=== PATIENT | female | born 1965 | race Caucasian/White ===

== ENCOUNTER → 2024-02-18 13:57 | Outpatient (REF) | payer MEDICARE, OTHER, SELFPAY | LOC: WDC 13:57 | PROVIDERS: ATTENDING PHYSICIAN Obstetrics & Gynecology Gynecology; FAMILY PHYSICIAN Family Medicine | DX: Z12.31 Encounter for screening mammogram for malignant neoplasm of breast (principal) | CPT/HCPCS: 77063; 77067 ==

== ENCOUNTER 2024-09-16 13:41 | Emergency (ER) | payer MEDICARE, OTHER, SELFPAY ==
[2024-09-16 13:43] VITALS: BP 146/73
[2024-09-16 14:17] LABS: % Basophils 0.3 % (0-2); % Eosinophils 1.7 % (0-6); % Immature Granulocytes 0.3 % (0-0.5); % Lymphocytes 39.7 % (20.5-51.1); % Monocytes 8.1 % (1.7-9.3); % Neutrophils 49.9 % (42.2-75.2); Absolute Eosinophils 0.1 10^3/uL (0-0.7); Absolute Lymphocytes 1.2 10^3/uL (1.2-3.4); Absolute Monocytes 0.2 10^3/uL (0.1-0.6); Absolute Neutrophils 1.5 10^3/uL (1.4-6.5); Hematocrit 33.2 % (37.0-47.0); Hemoglobin 11.7 g/dL (12.0-16.0); Mean Corp Hgb Conc. 35.2 g/dL (33.0-37.0); Mean Corpuscular Hgb 33.5 pg (27.0-31.0); Mean Corpuscular Volume 95.1 fL (81.0-99.0); Mean Platelet Volume 9.6 fL (7.4-10.4); Nucleated Red Blood Cells % 0 %; Platelet Count 261 10^3/uL (130-400); Red Blood Cell Count 3.49 10^6/uL (4.20-5.40); Red Cell Dist. Width 13.2 % (11.5-14.5)
[2024-09-16 14:49] LABS: ALT (SGPT) 18 U/L (0-35); AST (SGOT) 31 U/L (14-36); Albumin 4.4 g/dl (3.5-5.0); Alkaline Phosphatase 85 U/L (38-126); Blood Urea Nitrogen 15 mg/dl (7-17); Calcium 9.6 mg/dl (8.4-10.2); Carbon Dioxide 27 mmol/L (22-30); Chloride 101 mmol/L (98-107); Glucose 100 mg/dl (70-99); Potassium 3.8 mmol/L (3.5-5.1); Sodium 138 mmol/L (135-145); Total Bilirubin 0.2 mg/dl (0.2-1.3); Total Protein 6.9 g/dl (6.3-8.2); eGFR > 60.00
[2024-09-16 15:24] LABS: Lipase 127 U/L (23-300)
--- NOTE | 2024-09-16 15:32 | ED.GENMED ---
History of Present Illness
General
Chief Complaint: Headache
Time Seen by Provider: 09/16/24 15:02
History of Present Illness
History of Present Illness:
59-year-old female presents to the emergency department for evaluation of dizziness and headache. She was reportedly seen in the emergency department in [place] 3 days ago while traveling, had a fall and head injury associated with diarrhea,
she was treated with IV fluids and had a normal head CT. She states she has had a mild headache and dizziness since that time. Denies any vomiting or diarrhea continuing. Does have a history of migraines and states that her headache feels similar
to past migraines
Review of Systems
Review of Systems
Allergies reviewed?: Yes
All Other Systems: ROS reviewed and negative except as documented in HPI and ROS
Phy Exam
Physical Exam
Physical Exam:
GEN: Well appearing, NAD, WDWN
HEENT: Oral mucosa moist, no scleral icterus, no nasal congestion
Cardiac: Regular rate
Lung: No respiratory distress, no tachypnea
MSK: No gross deformity or injuries
Skin: Good color, no pallor or jaundice, no rashes
Neuro: AO x3; CN II-XII grossly intact. BUE strength 5/5 in all becker, sensation intact and symmetric. BLE strength 5/5 in all becker, sensation intact and symmetric
Psych: Calm, cooperative
Course
Orders/Labs/Results
Orders:
Orders
09/16/24 13:53
EKG [Electrocardiogram (*1)] Urgent
Reason for Study: Vertigo / Dizzy
CT Head W/o Iv Contrast Urgent
Comment:
Reason For Exam: fall, head injury, dizziness
09/16/24 13:56
EKG- Treatment ONCE
09/16/24 14:04
Complete Blood Count/With Diff Urgent
Comprehensive Metabolic Panel Urgent
Lipase Urgent
09/16/24 15:31
Ketorolac [Toradol] 15 mg IV NOW STA
Magnesium Sulfate 2 Gram/50 ml [Magnesium Sulfate] 2 gram in 50 ml IV NOW
Metoclopramide [Reglan] 10 mg IV NOW STA
Abnormal Lab Results
09/16/24
14:04
WBC 3.0 L 10^3/uL
(4.8-10.8)
RBC 3.49 L 10^6/uL
(4.20-5.40)
Hgb 11.7 L g/dL
(12.0-16.0)
Hct 33.2 L %
(37.0-47.0)
MCH 33.5 H pg
(27.0-31.0)
Glucose 100 H mg/dl
(70-99)
09/16/24 14:04
09/16/24 14:04
Vital Signs
Initial and Last Documented VS:
Initial Vital Signs
Temp Pulse Resp BP Pulse Ox
98.3 F 83 18 146/73 98
09/16/24 13:43 09/16/24 13:43 09/16/24 13:43 09/16/24 13:43 09/16/24 13:43
Last Documented Vital Signs
Temp Pulse Resp BP Pulse Ox
98.3 F 75 14 117/64 97
09/16/24 13:43 09/16/24 17:29 09/16/24 17:29 09/16/24 17:29 09/16/24 17:29
MDM/Problems Addressed
MDM/Problems Addressed:
Patient's headache and dizziness only marginally improved after migraine treatment. Likely indicative of postconcussive syndrome
*Critical Care Note
Total Time (30-74mins, 75-104mins- exclusive of procedures): Not Applicable
ED Attending Note
-
Portions of this chart may have been created with voice recognition software.� Occasional wrong word or��sound alike� substitutions may have occurred due to the inherent limitations of voice recognition software.
Discharge Plan
Departure
Patient Disposition: Home (Routine Discharge)
Date of Disposition: 09/16/24
Time of Disposition: 17:06
Patient with high blood pressure during this ER visit?: No
Discharge Problem:
Headache, CHI (closed head injury)
Instructions: Headache, Adult (DC)
Referrals:
Ashish Mason CRNP [Family Provider] -
Interventions
Interventions:
*Risk Screen - Suicide Last Done: 09/16/24 13:43
*General Assessment Last Done: 09/16/24 13:43
*Neglect/Abuse Screening Last Done: 09/16/24 16:14
ED- Fall Risk Assessment Last Done: 09/16/24 17:31
*ED COVID-19 Vaccine History Last Done: 09/16/24 13:43
*Nursing Disposition Last Done: 09/16/24 17:31
ED- Neurological Assessment Last Done: 09/16/24 16:14
Discharge Date and Time
Discharge Date/Time: 09/16/24 17:32
Print Language: HUNGARIAN
[2024-09-16 16:14] VITALS: BMI 20.7
[2024-09-16] MEDS: MAGNESIUM SULFATE 50 IV (16:34)
[2024-09-16] MEDS: REGLAN 10 MG IV (16:35)
[2024-09-16] MEDS: TORADOL 15 MG IV (16:37)
[2024-09-16 17:29] VITALS: BP 117/64
== END 2024-09-16 17:32 | disposition home or self-care (01) ==
LOC: EMR 13:41
PROVIDERS: Emergency Medicine; EMERGENCY PHYSICIAN Emergency Medicine; FAMILY PHYSICIAN Nurse Practitioner
DX: R51.9 Headache, unspecified (principal); S09.90XA Unspecified injury of head, initial encounter; W19.XXXA Unspecified fall, initial encounter
CPT/HCPCS: 99284; 96365; 96375; 70450; 80053; 83690; 85025; 93005

== ENCOUNTER → 2024-10-13 11:18 | Outpatient (REF) | payer MEDICARE, OTHER, SELFPAY | LOC: RAD 11:18 | PROVIDERS: ATTENDING PHYSICIAN Internal Medicine | DX: R19.8 Other specified symptoms and signs involving the digestive system and abdomen (principal); R14.0 Abdominal distension (gaseous); R10.30 Lower abdominal pain, unspecified | CPT/HCPCS: 74019 ==

== ENCOUNTER 2024-11-24 06:18 | Day surgery (SDC) | payer MEDICARE, OTHER, SELFPAY | END 2024-11-24 11:07 | disposition home or self-care (01) | LOC: GI 06:18 | PROVIDERS: ATTENDING PHYSICIAN Internal Medicine | DX: Z12.11 Encounter for screening for malignant neoplasm of colon (principal); K57.30 Diverticulosis of large intestine without perforation or abscess without bleeding; K64.8 Other hemorrhoids; K62.1 Rectal polyp | CPT/HCPCS: 45380; 88305 ==

== ENCOUNTER → 2025-02-21 13:53 | Outpatient (REF) | payer MEDICARE, OTHER, SELFPAY | LOC: WDC 13:53 | PROVIDERS: ATTENDING PHYSICIAN Obstetrics & Gynecology Gynecology | DX: Z12.31 Encounter for screening mammogram for malignant neoplasm of breast (principal) | CPT/HCPCS: 77063; 77067 ==

== ENCOUNTER 2025-03-03 10:19 | Emergency (ER) | payer MEDICARE, OTHER, SELFPAY ==
[2025-03-03 10:28] VITALS: BP 139/88
[2025-03-03 10:48] VITALS: BP 154/89
[2025-03-03 10:50] LABS: % Basophils 0.6 % (0-2); % Eosinophils 0.9 % (0-6); % Immature Granulocytes 0.3 % (0-0.5); % Lymphocytes 49.1 % (20.5-51.1); % Monocytes 7.5 % (1.7-9.3); % Neutrophils 41.6 % (42.2-75.2); Absolute Lymphocytes 1.6 10^3/uL (1.2-3.4); Absolute Monocytes 0.2 10^3/uL (0.1-0.6); Absolute Neutrophils 1.3 10^3/uL (1.4-6.5); Hematocrit 37.1 % (37.0-47.0); Hemoglobin 12.8 g/dL (12.0-16.0); Mean Corp Hgb Conc. 34.5 g/dL (33.0-37.0); Mean Corpuscular Hgb 32.2 pg (27.0-31.0); Mean Corpuscular Volume 93.2 fL (81.0-99.0); Mean Platelet Volume 9.2 fL (7.4-10.4); Nucleated Red Blood Cells % 0 %; Platelet Count 266 10^3/uL (130-400); Red Blood Cell Count 3.98 10^6/uL (4.20-5.40); Red Cell Dist. Width 12.9 % (11.5-14.5); White Blood Cell Count 3.2 10^3/uL (4.8-10.8)
[2025-03-03 11:00] VITALS: BP 151/78
[2025-03-03 11:10] LABS: ALT (SGPT) 17 U/L (0-35); AST (SGOT) 24 U/L (14-36); Albumin 4.6 g/dl (3.5-5.0); Alkaline Phosphatase 100 U/L (38-126); Blood Urea Nitrogen 12 mg/dl (7-17); Calcium 9.5 mg/dl (8.4-10.2); Carbon Dioxide 26 mmol/L (22-30); Chloride 99 mmol/L (98-107); Glucose 90 mg/dl (70-99); Potassium 3.6 mmol/L (3.5-5.1); Sodium 135 mmol/L (135-145); Total Bilirubin 0.7 mg/dl (0.2-1.3); Total Protein 7.1 g/dl (6.3-8.2); eGFR > 60.00
[2025-03-03 11:16] LABS: Troponin I < 0.012 ng/ml
--- NOTE | 2025-03-03 11:28 | ED.GENMED ---
History of Present Illness
General
Chief Complaint: Allergic Reaction
Source: patient
Exam Limitations: none
Time Seen by Provider: 03/03/25 11:02
History of Present Illness
History of Present Illness:
59yoF with a history of migraines presenting via EMS for evaluation after a possible medication reaction. Patient took topiramate 25 mg for the first time this morning around 9 AM. About 30 minutes later, she started to feel fatigued. This was
followed by pain in her throat as well as bilateral facial paresthesias. She states her it felt like her entire body went numb and she became lightheaded. She also developed some dull chest discomfort. Due to her symptoms, EMS was activated.
Patient is currently feeling improved but continues to have some facial paresthesias and lightheadedness. She also has a headache which she currently rates as a 6-7/10 in severity. Patient was researching the medication last night and was worried
about the side effects prior to taking it.
Phy Exam
General Physical Exam
General Presentation: well appearing and no apparent distress
General age: appears stated age
General Skin: warm and dry
General Habitus: normal
General Mental: alert
ENT Exam
ENT Exam: pharynx normal and normocephalic
Eye Exam
Eye Exam: PERRL, EOMI and conjunctiva normal
Cardiovascular Exam
Cardiovascular Exam: regular rate/rhythm, no murmur and normal peripheral pulses (2+ DP pulses bilaterally)
Pulmonary Exam
Pulmonary Exam: lungs clear, no respiratory distress, no rales, no crackles, no rhonchi and no wheezing
Neurological Exam
Neurological Exam: alert, CN II-XII intact, no motor deficits, speech normal and other (CN 2-12 intact. No sensory deficit appreciated. Negative drift x4. Normal finger to nose and heel to ambrocio bilaterally. )
Skin Exam
Skin Exam: normal color and warm/dry
Psychiatric Exam
Psychiatric Exam: normal mood/affect
Course
Orders/Labs/Results
Orders:
Orders
03/03/25 10:31
Electrocardiogram (*1) Urgent
Reason for Study: Chest Pain
EKG- Treatment ONCE
03/03/25 10:34
Complete Blood Count/With Diff Urgent
Comprehensive Metabolic Panel Urgent
Troponin I Urgent
03/03/25 11:26
Cardiac Monitoring- Treatment ONCE
0.9% Sodium Chloride 1000 ml [Nss] 1,000 ml IV BOLUS
Ketorolac [Toradol] 15 mg IV NOW STA
Magnesium Sulfate 2 Gram/50 ml [Magnesium Sulfate] 2 gram in 50 ml IV NOW
Metoclopramide [Reglan] 10 mg IV NOW STA
03/03/25 11:27
EKG- Treatment ONCE
CR Chest - 2 Views Urgent
Comment:
Reason For Exam: CP
03/03/25 13:30
Electrocardiogram (*1) Urgent
Reason for Study: Chest Pain
Troponin I Urgent
Abnormal Lab Results
03/03/25
10:34
WBC 3.2 L 10^3/uL
(4.8-10.8)
RBC 3.98 L 10^6/uL
(4.20-5.40)
MCH 32.2 H pg
(27.0-31.0)
Absolute Neuts (auto) 1.3 L 10^3/uL
(1.4-6.5)
Neutrophils % 41.6 L %
(42.2-75.2)
03/03/25 10:34
03/03/25 10:34
Vital Signs
Initial and Last Documented VS:
Initial Vital Signs
Temp Pulse Resp BP Pulse Ox
97.9 F 72 20 139/88 100
03/03/25 10:28 03/03/25 10:28 03/03/25 10:28 03/03/25 10:28 03/03/25 10:28
Last Documented Vital Signs
Temp Pulse Resp BP Pulse Ox
97.9 F 87 14 130/82 99
03/03/25 10:28 03/03/25 14:03 03/03/25 13:45 03/03/25 14:03 03/03/25 14:03
MDM/Problems Addressed
Differential Diagnosis Includes:
59yoF here with multiple complaints including headache, lightheadedness, chest pain, facial paresthesias, and fatigue. Started 30 minutes after taking topiramate for the first time. She is mildly hypertensive with otherwise stable vitals. She is
well appearing in no distress. Exam reassuring. No focal neuro deficit appreciated. Differential diagnosis includes but is not limited to: medication side effect, arrhythmia, anxiety, less likely ACS
Initial ED plan: Cardiac labs and EKG obtained in triage. Labs overall unremarkable. EKG shows NSR without ischemic changes and troponin WNL. Will check delta troponin/EKG and CXR. IV migraine cocktail and reassess.
*EKG
Interpreted by ED Provider?: Yes
EKG Intrepretation Date: 03/03/25
Heart Rate: 68
Rate: normal
Rhythm: sinus
[place]: normal axis
Interval: normal interval
QRS Pattern: normal QRS
Ischemia: no ischemia
*Critical Care Note
Total Time (30-74mins, 75-104mins- exclusive of procedures): Not Applicable
Update Note
Update Note:
Chest x-ray is clear. Repeat EKG and troponin unchanged. Patient feeling significantly improved on reassessment. Her paresthesias and chest pressure have completely resolved. Her headache is now mild in severity. No indication for
hospitalization. Patient advised to stop taking topiramate and discuss with her neurology team. ED return precautions discussed. Patient in agreement with plan and was discharged in stable condition.
ED Attending Note
-
Portions of this chart may have been created with voice recognition software.� Occasional wrong word or��sound alike� substitutions may have occurred due to the inherent limitations of voice recognition software.
Discharge Plan
Departure
Patient Disposition: Home (Routine Discharge)
Date of Disposition: 03/03/25
Time of Disposition: 14:10
Patient with high blood pressure during this ER visit?: No
Discharge Problem:
Lightheadedness, Facial paresthesia, Chest pain, Acute nonintractable headache
Instructions: Adverse Drug Reactions, Adult (DC)
Referrals:
Madelaine Prabhakar PA-C [Family Provider] -
Activity Restrictions/Additional Instructions:
Stop taking topiramate.
Please follow-up with your family doctor and neurologist. Return to the ER with any new or worsening symptoms.
Interventions
Interventions:
*Risk Screen - Suicide Last Done: 03/03/25 10:28
*General Assessment Last Done: 03/03/25 10:28
*Neglect/Abuse Screening Last Done: 03/03/25 10:28
*Nursing Disposition Last Done: 03/03/25 14:13
ED- Cardiac Assessment Last Done: 03/03/25 10:58
ED- Pulmonary Assessment Last Done: 03/03/25 10:58
ED-Skin Assessment Last Done: 03/03/25 10:58
Discharge Date and Time
Discharge Date/Time: 03/03/25 15:12
Print Language: BAHAMIAN
[2025-03-03] MEDS: REGLAN 10 MG IV (11:39)
[2025-03-03] MEDS: NSS 1000 IV (11:39)
[2025-03-03] MEDS: TORADOL 15 MG IV (11:39)
[2025-03-03] MEDS: MAGNESIUM SULFATE 50 IV (11:39)
[2025-03-03 12:00] VITALS: BP 101/75
[2025-03-03 13:00] VITALS: BP 142/89
[2025-03-03 14:02] LABS: Troponin I < 0.012 ng/ml
[2025-03-03 14:03] VITALS: BP 130/82
== END 2025-03-03 15:12 | disposition home or self-care (01) ==
LOC: EMR 10:19
PROVIDERS: Emergency Medicine; Physician Assistant; EMERGENCY PHYSICIAN Emergency Medicine; FAMILY PHYSICIAN Physician Assistant
DX: T78.40XA Allergy, unspecified, initial encounter (principal); Y92.9 Unspecified place or not applicable
CPT/HCPCS: 99283; 96365; 96375; 71046; 80053; 84484; 85025; 93005

== ENCOUNTER → 2025-05-17 11:06 | Outpatient (REF) | payer MEDICARE, OTHER, SELFPAY | LOC: PAVMRI 11:06 | PROVIDERS: ATTENDING PHYSICIAN Nurse Practitioner; FAMILY PHYSICIAN Physician Assistant | DX: G43.719 Chronic migraine without aura, intractable, without status migrainosus (principal) | CPT/HCPCS: 70553; A9575 ==